=== PATIENT | female | born 1995 | race Caucasian/White ===

== ENCOUNTER 2016-11-26 01:25 | Emergency (ER) | payer SELFPAY | END 2016-11-26 01:30 | disposition left against medical advice (07) | LOC: D.ER 01:25 | DX: Z02.9 Encounter for administrative examinations, unspecified (principal) ==

== ENCOUNTER 2017-03-23 19:03 | Emergency (ER) | payer MEDICAID ==
[2017-03-23 19:49] LABS: BASOPHILS 0.4 % (0-2); EOSINOPHILS 6.6 % (0-7); HEMATOCRIT 41.7 % (36.0-48.0); HEMOGLOBIN 14.3 g/dL (12-16); IMMATURE GRANULOCYTES 0.3 % (0-5); LYMPHOCYTES 31.4 % (15-50); MCH 30.2 pg (26.0-34.0); MCHC 34.3 g/dL (31.0-37.0); MONOCYTES 6.4 % (2-11); NEUTROPHILS 54.9 % (40-80); PLATELET COUNT 205 10x3/uL (130-400); RBC 4.74 10x6/uL (4.00-5.40); RDW 12.7 % (11.5-14.5); WBC 9.7 10x3/uL (4.8-10.8)
[2017-03-23 19:57] LABS: CALC OSMOLALITY 279 mosm/kg (275-300); CALCIUM 8.7 mg/dL (8.5-10.1); CARBON DIOXIDE 26.9 mmol/L (21.0-32.0); CHLORIDE - SERUM 105 mmol/L (98-107); CREATININE - SERUM 0.8 mg/dL (0.6-1.3); GLUCOSE 105 mg/dL (74-106); POTASSIUM - SERUM 3.9 mmol/L (3.5-5.1); SODIUM 140 mmol/L (136-145); UREA NITROGEN 14 mg/dL (7-18); eGFR NON AFRICAN AMERICAN > 90 mL/min (90-120)
== END 2017-03-23 21:11 | disposition home or self-care (01) ==
LOC: D.ER 19:03
PROVIDERS: Family Medicine
DX: R07.89 Other chest pain (principal); M94.0 Chondrocostal junction syndrome [Tietze]; J45.909 Unspecified asthma, uncomplicated; Z79.890 Hormone replacement therapy; F17.200 Nicotine dependence, unspecified, uncomplicated

== ENCOUNTER 2018-08-25 15:25 | Emergency (ER) | payer SELFPAY ==
[~2018-08-25] VITALS: Ht 165.1 cm; Wt 98.6 kg
[2018-08-25 15:36] VITALS: Ht 165.1 cm; Wt 98.6 kg
[2018-08-25] MEDS ORDERED: PROVENTIL/2.5 MG/3 M INH (15:37)
[2018-08-25 16:18] LABS: BASOPHILS 0.3 % (0-2); EOSINOPHILS 5.5 % (0-7); HEMOGLOBIN 14.2 g/dL (12-16); IMMATURE GRANULOCYTES 0.3 % (0-5); MCH 29.6 pg (26.0-34.0); MCHC 33.8 g/dL (31.0-37.0); MCV 87.7 fL (80.0-100.0); MONOCYTES 7.1 % (2-11); NEUTROPHILS 57.8 % (40-80); PLATELET COUNT 230 10x3/uL (130-400); RBC 4.79 10x6/uL (4.00-5.40); RDW 13.3 % (11.5-14.5); WBC 11.6 10x3/uL (4.8-10.8)
[2018-08-25 16:28] LABS: ALBUMIN 3.5 g/dL (3.4-5.0); ALKALINE PHOSPHATASE 56 U/L (46-116); ALT (SGPT) 16 U/L (10-68); BILIRUBIN - TOTAL 0.18 mg/dL (0.2-1.3); CALC OSMOLALITY 281 mosm/kg (275-300); CALCIUM 8.4 mg/dL (8.5-10.1); CARBON DIOXIDE 25.2 mmol/L (21.0-32.0); CHLORIDE - SERUM 105 mmol/L (98-107); CREATININE - SERUM 0.8 mg/dL (0.6-1.3); GLUCOSE 84 mg/dL (74-106); POTASSIUM - SERUM 3.8 mmol/L (3.5-5.1); PROTEIN - SERUM 7.4 g/dL (6.4-8.2); SODIUM 142 mmol/L (136-145); UREA NITROGEN 13 mg/dL (7-18); eGFR NON AFRICAN AMERICAN > 90 mL/min (90-120)
[2018-08-25 16:49] LABS: HCG - QUANTITATIVE (MATERNAL) 1875 mIU/mL
[2018-08-25] MEDS ORDERED: FLAGYL500 MG PO (20:51)
[2018-08-25 21:15] VITALS: BP 132/78
[2018-08-25 22:26] LABS: APPEARANCE HAZY (CLEAR); COLOR YELLOW (YELLOW)
[2018-08-25 22:27] LABS: BILIRUBIN NEGATIVE (NEGATIVE); GLUCOSE NEGATIVE (NEGATIVE); KETONE NEGATIVE (NEGATIVE); NITRITE NEGATIVE (NEGATIVE); PROTEIN NEGATIVE (NEGATIVE); SPECIFIC GRAVITY 1.025 (1.005-1.020); UROBILINOGEN NORMAL (NORMAL)
[2018-08-29 14:16] LABS: CHLAMYDIA TRACHOMATIS, NAA Negative (Negative)
== END 2018-08-25 21:17 | disposition home or self-care (01) ==
LOC: D.ER 15:25
PROVIDERS: Emergency Medicine; Family Medicine
DX: O26.899 Other specified pregnancy related conditions, unspecified trimester (principal); Z3A.00 Weeks of gestation of pregnancy not specified; N89.8 Other specified noninflammatory disorders of vagina

== ENCOUNTER 2018-10-22 19:16 | Emergency (ER) | payer MEDICAID ==
[~2018-10-22] VITALS: Ht 165.1 cm; Wt 98.2 kg
[~2018-10-22 19:16] MED LIST: FLAGYL500 MG PO; PROVENTIL/2.5 MG/3 M INH
[2018-10-22 19:25] VITALS: Ht 165.1 cm; Wt 98.2 kg
[2018-10-22 20:09] LABS: BASOPHILS 0.1 % (0-2); EOSINOPHILS 3.9 % (0-7); HEMATOCRIT 43.7 % (36.0-48.0); IMMATURE GRANULOCYTES 0.2 % (0-5); LYMPHOCYTES 22.6 % (15-50); MCH 29.9 pg (26.0-34.0); MCHC 34.3 g/dL (31.0-37.0); MCV 87.1 fL (80.0-100.0); MEAN PLATELET VOLUME 10.3 fL (7.4-10.4); MONOCYTES 4.3 % (2-11); NEUTROPHILS 68.9 % (40-80); RBC 5.02 10x6/uL (4.00-5.40); RDW 13.3 % (11.5-14.5); WBC 14.5 10x3/uL (4.8-10.8)
[2018-10-22 20:10] LABS: PLATELET COUNT 181 10x3/uL (130-400)
[2018-10-22 20:23] LABS: ALBUMIN 3.1 g/dL (3.4-5.0); ALKALINE PHOSPHATASE 57 U/L (46-116); ALT (SGPT) 18 U/L (10-68); BILIRUBIN - TOTAL 0.32 mg/dL (0.2-1.3); CALC OSMOLALITY 264 mosm/kg (275-300); CALCIUM 8.7 mg/dL (8.5-10.1); CARBON DIOXIDE 20.9 mmol/L (21.0-32.0); CHLORIDE - SERUM 102 mmol/L (98-107); CREATININE - SERUM 0.6 mg/dL (0.6-1.3); GLUCOSE 82 mg/dL (74-106); POTASSIUM - SERUM 3.6 mmol/L (3.5-5.1); PROTEIN - SERUM 7.5 g/dL (6.4-8.2); SODIUM 134 mmol/L (136-145); UREA NITROGEN 7 mg/dL (7-18); eGFR NON AFRICAN AMERICAN > 90 mL/min (90-120)
[2018-10-22 20:45] LABS: HCG - QUANTITATIVE (MATERNAL) 90630 mIU/mL
[2018-10-22 21:13] LABS: APPEARANCE CLEAR (CLEAR); BILIRUBIN NEGATIVE (NEGATIVE); COLOR YELLOW (YELLOW); GLUCOSE NEGATIVE (NEGATIVE); KETONE MODERATE mg/dL (NEGATIVE); NITRITE NEGATIVE (NEGATIVE); PROTEIN NEGATIVE (NEGATIVE); SPECIFIC GRAVITY 1.025 (1.005-1.020); UROBILINOGEN NORMAL (NORMAL)
[2018-10-22 21:15] LABS: BACTERIA MANY /hpf (NONE SEEN); MUCUS <1+ /lpf (NONE SEEN); RED CELLS - URINE 0-5 /hpf (0-5)
[2018-10-22] MEDS ORDERED: FLAGYL70 GM VG (21:19)
[2018-10-22] MEDS ORDERED: MACROBID100 MG PO (21:19)
[2018-10-22 21:36] VITALS: BP 135/65
== END 2018-10-22 21:37 | disposition home or self-care (01) ==
LOC: D.ER 19:16
PROVIDERS: Family Medicine
DX: O23.41 Unspecified infection of urinary tract in pregnancy, first trimester (principal); Z3A.13 13 weeks gestation of pregnancy; M54.5 Low back pain

== ENCOUNTER → 2019-03-16 13:46 | Outpatient (CLI) | payer MEDICAID ==
[2018-10-22 19:25] VITALS: BMI 36.0
[~2019-03-16 13:46] MED LIST changes: +FLAGYL70 GM VG; +MACROBID100 MG PO; +PRENAVITE1 TAB PO; +PREVACID30 MG PO; +ZYRTEC10 MG PO
[2019-03-16 14:39] LABS: APPEARANCE HAZY (CLEAR); BILIRUBIN NEGATIVE (NEGATIVE); COLOR YELLOW (YELLOW); GLUCOSE NEGATIVE (NEGATIVE); KETONE NEGATIVE (NEGATIVE); NITRITE NEGATIVE (NEGATIVE); PROTEIN NEGATIVE (NEGATIVE); SPECIFIC GRAVITY 1.015 (1.005-1.020); UROBILINOGEN NORMAL (NORMAL)
== END | disposition home or self-care (01) ==
LOC: D.LDO 13:46
PROVIDERS: ATTEND Obstetrics & Gynecology
DX: O26.899 Other specified pregnancy related conditions, unspecified trimester (principal)

== ENCOUNTER 2019-07-17 16:55 | Emergency (ER) | payer MEDICAID ==
[~2019-07-17] VITALS: Ht 165.1 cm; Wt 90.9 kg
[2019-07-17 17:15] VITALS: Ht 165.1 cm; Wt 90.9 kg
[2019-07-17 17:47] LABS: BASOPHILS 0.1 % (0-2); EOSINOPHILS 1.7 % (0-7); HEMATOCRIT 41.2 % (36.0-48.0); HEMOGLOBIN 13.1 g/dL (12-16); IMMATURE GRANULOCYTES 1.1 % (0-5); LYMPHOCYTES 24.8 % (15-50); MCH 25.2 pg (26.0-34.0); MCHC 31.8 g/dL (31.0-37.0); MCV 79.4 fL (80.0-100.0); MEAN PLATELET VOLUME 8.9 fL (7.4-10.4); NEUTROPHILS 64.3 % (40-80); RBC 5.19 10x6/uL (4.00-5.40); RDW 18.8 % (11.5-14.5); WBC 17.2 10x3/uL (4.8-10.8)
[2019-07-17 17:55] LABS: PLATELET COUNT 266 10x3/uL (130-400)
[2019-07-17 18:01] LABS: APPEARANCE CLEAR (CLEAR); BILIRUBIN NEGATIVE (NEGATIVE); COLOR YELLOW (YELLOW); GLUCOSE NEGATIVE (NEGATIVE); KETONE NEGATIVE (NEGATIVE); NITRITE NEGATIVE (NEGATIVE); PROTEIN NEGATIVE (NEGATIVE); SPECIFIC GRAVITY 1.025 (1.005-1.020); UROBILINOGEN NORMAL (NORMAL)
[2019-07-17 18:03] LABS: CALC OSMOLALITY 281 mosm/kg (275-300); CALCIUM 8.5 mg/dL (8.5-10.1); CARBON DIOXIDE 27.3 mmol/L (21.0-32.0); CHLORIDE - SERUM 105 mmol/L (98-107); CREATININE - SERUM 0.7 mg/dL (0.6-1.3); GLUCOSE 101 mg/dL (74-106); POTASSIUM - SERUM 3.9 mmol/L (3.5-5.1); SODIUM 139 mmol/L (136-145); UREA NITROGEN 25 mg/dL (7-18); eGFR NON AFRICAN AMERICAN > 90 mL/min (90-120)
[2019-07-17 18:09] LABS: ALBUMIN 3.1 g/dL (3.4-5.0); ALKALINE PHOSPHATASE 79 U/L (46-116); ALT (SGPT) 24 U/L (10-68); AMYLASE - SERUM 74 U/L (25-115); BILIRUBIN - TOTAL 0.37 mg/dL (0.2-1.3); LIPASE 272 U/L (73-393); PROTEIN - SERUM 6.3 g/dL (6.4-8.2)
[2019-07-17 20:06] LABS: HCG URINE NEGATIVE (NEGATIVE)
[2019-07-17] MEDS ORDERED: PROTONIX40 MG PO (20:22)
[2019-07-18 00:22] VITALS: BP 125/79
== END 2019-07-17 21:20 | disposition home or self-care (01) ==
LOC: D.ER 16:55
PROVIDERS: Family Medicine
DX: K21.9 Gastro-esophageal reflux disease without esophagitis (principal); J45.909 Unspecified asthma, uncomplicated; I48.91 Unspecified atrial fibrillation

== ENCOUNTER 2020-12-06 21:16 | Emergency (ER) | payer MEDICAID ==
[~2020-12-06] VITALS: Ht 165.1 cm; Wt 100.0 kg
[~2020-12-06 21:16] MED LIST changes: +BREO ELLIPTA 11 EACH INH; +MYCOSTATIN 15 G15 GM TOPICAL; +PROTONIX40 MG PO
[2020-12-06 21:32] VITALS: Ht 165.1 cm; Wt 100.0 kg
[2020-12-06 22:10] VITALS: BP 104/75
[2020-12-06 22:13] LABS: HCG URINE NEGATIVE (NEGATIVE)
[2020-12-06 22:23] LABS: AMORPHOUS SEDIMENT >1+ LPF (NONE SEEN); BILIRUBIN NEGATIVE (NEGATIVE); KETONE NEGATIVE (NEGATIVE); NITRITE NEGATIVE (NEGATIVE); SQUAMOUS EPITHELIAL 0-5 HPF (0-4); UROBILINOGEN NORMAL mg/dL (< 2); WHITE CELLS - URINE OCC HPF (0-4)
[2020-12-06] MEDS ORDERED: FLUTICASONE PRO16 GM NASAL (23:13)
== END 2020-12-06 23:24 | disposition home or self-care (01) ==
LOC: D.ER 21:16
PROVIDERS: Family Medicine
DX: J30.9 Allergic rhinitis, unspecified (principal); K21.9 Gastro-esophageal reflux disease without esophagitis; M54.5 Low back pain